=== PATIENT | female | born 1955 | race African-American/Black ===

== ENCOUNTER 2017-12-21 12:24 | Inpatient (IN) | payer OTHER ==
[~2017-12-21] VITALS: Ht 162.6 cm; Wt 84.5 kg
[~2017-12-21 12:24] MED LIST: ASPIR-LOW81 MG PO; BACTRIM,SEPT1 TABLET PO; BYDUREON P2 MG/0.65 SC; BYETTA10 MCG/0.0 SC; CALCIUM 500 MG1 EACH PO; CALCIUM 600 +1 EAC1 PO; CELEXA40 MG PO; COUMADIN1 MG PO; COUMADIN5 MG PO; COUMADIN6 MG PO; DILAUDID2 MG PO; DIOVAN HCT 31 TABLE1 PO; DOXYCYCLINE HY100 M3 PO; FA-80.8 MG PO; FLEXERIL10 MG PO; FLONASE16 G1 BOTH NARES; GINKGO BILOBA120 MG PO; HUMALOG MI100 UNIT/1 SC; K-DUR20 MEQ PO; LOPRESSOR50 MG PO; LOVENOX80 MG/0.8 SC; MORPHINE SULFA100 M3 PO; NON-ASPIRIN PA500 MG PO; ONE DAILY FOR1 EAC1 PO; PAZEO2.5 ML BOTH EYES; PREVACID30 MG PO; RANITIDINE HCL150 M1 PO; RANITIDINE HCL150 MG PO; TORSEMIDE20 MG PO; ZOFRAN4 MG PO; [UNRECOGNIZED DRUG - REMARK]
[2017-12-21 13:15] LABS: HEMATOCRIT 46.1 % (36.0-46.0); MCH 33.5 PG (29.0-34.0); MCHC 34.7 G/DL (30.0-36.0); MCV 96.6 FL (83-99); PLATELET COUNT 199 K/uL (156-360); RBC DIS.WIDTH-CV 12.9 % (11.8-14.6); RBC DIS.WIDTH-SD 46.2 % (39-53); RED BLOOD COUNT 4.77 M/uL (3.80-5.20); WHITE BLOOD COUNT 10.5 K/uL (4.1-10.2)
[2017-12-21 13:31] LABS: CHLORIDE 103 mEq/L (99-109); POTASSIUM 3.9 mEq/L (3.7-5.4); SODIUM 140 mEq/L (136-147)
[2017-12-21 13:37] LABS: CREATININE 1.6 mg/dL (0.6-1.3); GFR ESTIMATE (CALCULATED) 42 mL/min/; UREA NITROGEN (BUN) 24 mg/dL (9-23)
[2017-12-21 13:47] LABS: GLUCOSE 494 mg/dL (70-99)
[2017-12-21 14:54] LABS: APPEARANCE CLOUDY ((CLEAR)); BILIRUBIN NEGATIVE; BLOOD LARGE; COLOR YELLOW ((YELLOW)); GLUCOSE (STRIP) >=500; KETONES 5; LEUKOCYTES NEGATIVE; NITRITE NEGATIVE; PROTEIN (STRIP) 30; UROBILINOGEN 0.2 MG/DL (0.2-1.0)
[2017-12-21 14:55] LABS: TROP-I INTERPRETATION POSITIVE
[2017-12-21 14:56] LABS: TROPONIN-I 0.73 ng/mL (0.0-0.30)
[2017-12-21 15:15] LABS: BACTERIA 4+ /HPF; EPITHELIAL CELLS NONE SEEN /HPF; MUCUS NONE SEEN /LPF; RED BLOOD CELLS 40-50 /HPF (0-5); UCUL ADDED? YES; WHITE BLOOD CELLS 0-5 /HPF (0-5)
[2017-12-21] MEDS ORDERED: DEMADEX20 MG PO (17:01)
[2017-12-21] MEDS ORDERED: ARICEPT10 MG PO (17:01)
[2017-12-21] MEDS ORDERED: K-DUR20 MEQ PO (17:01)
[2017-12-21] MEDS ORDERED: HUMALOG MI100 UNIT/5 SC (17:01)
[2017-12-21] MEDS ORDERED: LOPRESSOR50 MG PO (17:01)
[2017-12-21] MEDS ORDERED: BACLOFEN20 MG PO (17:01)
[2017-12-21] MEDS ORDERED: LIPITOR40 MG PO (17:01)
[2017-12-21] MEDS ORDERED: MAGNESIUM400 M1 PO (17:01)
[2017-12-21] MEDS ORDERED: FOLIC ACID0.4 MG PO (17:01)
[2017-12-21] MEDS ORDERED: AMITRIPTYLINE H25 MG PO (17:01)
[2017-12-21] MEDS ORDERED: LANSOPRAZOLE30 MG PO (17:01)
[2017-12-21] MEDS ORDERED: CALCIUM 500 +1 EAC2 PO (17:01)
[2017-12-21] MEDS ORDERED: TOPAMAX100 MG PO (17:01)
[2017-12-21] MEDS ORDERED: MORPHINE SULFAT30 M2 PO (17:01)
[2017-12-21] MEDS ORDERED: DIOVAN320 MG PO (17:01)
[2017-12-21] MEDS ORDERED: BYDUREON P2 MG/0.65 SC (17:01)
[2017-12-21] MEDS ORDERED: HUMALOG100 UNIT/2 SC (17:04)
[2017-12-21] MEDS ORDERED: FLONASE16 G1 BOTH NARES (17:04)
[2017-12-21] MEDS ORDERED: NAMENDA5 MG PO (17:04)
[2017-12-21] MEDS ORDERED: VOLTAREN 1% GE100 GM TP (17:05)
[2017-12-21] MEDS ORDERED: TRESIBA FL100 UNIT/1 SC (17:06)
[2017-12-21 17:58] LABS: INTER. NORMALIZED RATIO 1.1
[2017-12-21 18:00] LABS: PTT 29.1 SEC (25-37)
[2017-12-21 18:21] VITALS: BP 161/14
[2017-12-21 19:08] LABS: TROP-I INTERPRETATION POSITIVE; TROPONIN-I 0.95 ng/mL (0.0-0.30)
[2017-12-21 19:18] VITALS: BP 136/78
[2017-12-21 19:21] LABS: THYROTROPIN (TSH) 0.3 MIU/L (0.4-5.5)
[2017-12-22] VITALS (7 sets, daily range): BP systolic 133–192; BP diastolic 69–103
[2017-12-22 02:42] LABS: HEMATOCRIT 41.8 % (36.0-46.0); HEMOGLOBIN 14.2 G/DL (11.9-15.5); MCH 33.4 PG (29.0-34.0); MCV 98.4 FL (83-99); PLATELET COUNT 177 K/uL (156-360); RBC DIS.WIDTH-CV 13.3 % (11.8-14.6); RBC DIS.WIDTH-SD 47.5 % (39-53); RED BLOOD COUNT 4.25 M/uL (3.80-5.20); WHITE BLOOD COUNT 8.9 K/uL (4.1-10.2)
[2017-12-22 02:58] LABS: CHLORIDE 108 mEq/L (99-109); POTASSIUM 3.6 mEq/L (3.7-5.4); SODIUM 141 mEq/L (136-147)
[2017-12-22 02:59] LABS: GLUCOSE 248 mg/dL (70-99)
[2017-12-22 03:03] LABS: GFR ESTIMATE (CALCULATED) > 59 mL/min/
[2017-12-22 03:04] LABS: UREA NITROGEN (BUN) 21 mg/dL (9-23)
[2017-12-22 03:05] LABS: TROP-I INTERPRETATION INDETERMINATE; TROPONIN-I 0.59 ng/mL (0.0-0.30)
[2017-12-22 10:44] LABS: HEMOGLOBIN A1c (GLYCOHEMOGLOB) 10.4 % (Below 5.7)
[2017-12-23] VITALS (7 sets, daily range): BP systolic 142–192; BP diastolic 76–87
[2017-12-23 06:19] LABS: BASOPHIL (%) 0.3 % (0-1); EOSINOPHIL (%) 1.2 % (0-5); EOSINOPHIL COUNT 0.1 K/uL (0-0.3); HEMOGLOBIN 12.6 G/DL (11.9-15.5); IMMATURE GRANULOCYTE (%) 1.2 % (0.0-0.7); LYMPHOCYTE (%) 24.9 % (15-42); LYMPHOCYTE COUNT 1.7 K/uL (1.0-2.8); MCH 32.7 PG (29.0-34.0); MCHC 32.3 G/DL (30.0-36.0); MCV 101.3 FL (83-99); MONOCYTE (%) 8.5 % (3-12); MONOCYTE COUNT 0.6 K/uL (0-0.8); NEUTROPHIL (%) 63.9 % (45-76); NEUTROPHIL COUNT 4.3 K/uL (1.8-6.4); PLATELET COUNT 140 K/uL (156-360); RBC DIS.WIDTH-CV 13.3 % (11.8-14.6); RBC DIS.WIDTH-SD 50.4 % (39-53); RED BLOOD COUNT 3.85 M/uL (3.80-5.20); WHITE BLOOD COUNT 6.7 K/uL (4.1-10.2)
[2017-12-23 06:48] LABS: PTT 77.7 SEC (25-37)
[2017-12-23 07:01] LABS: ALBUMIN 2.7 G/DL (3.2-4.8); ALKALINE PHOSPHATASE 78 IU/L (3-129); ALT (GPT) 15 IU/L (3-49); AST (GOT) 12 IU/L (2-34); CHLORIDE 105 MEQ/L (99-109); CREATININE 1.1 MG/DL (0.6-1.3); GFR ESTIMATE (CALCULATED) > 59 mL/min/; GLUCOSE 347 mg/dL (70-99); POTASSIUM 3.7 MEQ/L (3.7-5.4); SODIUM 142 MEQ/L (136-147); TOTAL BILIRUBIN 0.4 MG/DL (0.0-1.0); TOTAL PROTEIN 4.8 G/DL (6.4-8.3); UREA NITROGEN (BUN) 19 mg/dL (9-23)
[2017-12-24] VITALS (8 sets, daily range): BP systolic 136–160; BP diastolic 70–88
[2017-12-24 06:05] LABS: APPEARANCE CLEAR ((CLEAR)); BILIRUBIN NEGATIVE; BLOOD MODERATE; COLOR STRAW ((YELLOW)); GLUCOSE (STRIP) >=500; KETONES NEGATIVE; LEUKOCYTES TRACE; NITRITE NEGATIVE; PROTEIN (STRIP) NEGATIVE; UROBILINOGEN 0.2 MG/DL (0.2-1.0)
[2017-12-24 06:18] LABS: BASOPHIL (%) 0.6 % (0-1); BASOPHIL COUNT 0.1 K/uL (0-0.1); EOSINOPHIL (%) 1.4 % (0-5); EOSINOPHIL COUNT 0.1 K/uL (0-0.3); HEMATOCRIT 41.4 % (36.0-46.0); HEMOGLOBIN 13.7 G/DL (11.9-15.5); IMMATURE GRANULOCYTE (%) 1.9 % (0.0-0.7); LYMPHOCYTE (%) 25.6 % (15-42); MCH 32.9 PG (29.0-34.0); MCHC 33.1 G/DL (30.0-36.0); MCV 99.3 FL (83-99); MONOCYTE (%) 7.9 % (3-12); MONOCYTE COUNT 0.6 K/uL (0-0.8); NEUTROPHIL (%) 62.6 % (45-76); NEUTROPHIL COUNT 4.8 K/uL (1.8-6.4); NRBC (%) 0.3 /100 WBC (0-0); PLATELET COUNT 164 K/uL (156-360); RBC DIS.WIDTH-CV 13.2 % (11.8-14.6); RBC DIS.WIDTH-SD 47.8 % (39-53); RED BLOOD COUNT 4.17 M/uL (3.80-5.20); WHITE BLOOD COUNT 7.7 K/uL (4.1-10.2)
[2017-12-24 06:38] LABS: BACTERIA RARE /HPF; EPITHELIAL CELLS RARE /HPF; MUCUS 1+ /LPF; RED BLOOD CELLS 0-5 /HPF (0-5); UCUL ADDED? YES
[2017-12-24 06:55] LABS: ALBUMIN 2.9 G/DL (3.2-4.8); ALKALINE PHOSPHATASE 86 IU/L (3-129); ALT (GPT) 16 IU/L (3-49); AST (GOT) 15 IU/L (2-34); CHLORIDE 109 MEQ/L (99-109); CREATININE 0.8 MG/DL (0.6-1.3); GFR ESTIMATE (CALCULATED) > 59 mL/min/; GLUCOSE 199 mg/dL (70-99); POTASSIUM 3.9 MEQ/L (3.7-5.4); SODIUM 144 MEQ/L (136-147); TOTAL PROTEIN 4.9 G/DL (6.4-8.3); UREA NITROGEN (BUN) 19 mg/dL (9-23)
[2017-12-24 07:00] LABS: TOTAL BILIRUBIN 0.5 MG/DL (0.0-1.0)
[2017-12-25 03:49] VITALS: BP 170/80
[2017-12-25 07:30] VITALS: BP 160/110
[2017-12-25 11:00] VITALS: BP 170/110
[2017-12-25 17:44] VITALS: BP 189/90
[2017-12-25 18:00] VITALS: BP 189/84
[2017-12-25 20:00] VITALS: BP 168/84
[2017-12-26] VITALS (9 sets, daily range): BP systolic 123–180; BP diastolic 74–94
[2017-12-26 06:31] LABS: HEMATOCRIT 43.9 % (36.0-46.0); MCH 33.9 PG (29.0-34.0); MCHC 34.2 G/DL (30.0-36.0); MCV 99.1 FL (83-99); NRBC (%) 0.4 /100 WBC (0-0); PLATELET COUNT 159 K/uL (156-360); RBC DIS.WIDTH-CV 13.3 % (11.8-14.6); RBC DIS.WIDTH-SD 48.1 % (39-53); RED BLOOD COUNT 4.43 M/uL (3.80-5.20); WHITE BLOOD COUNT 7.4 K/uL (4.1-10.2)
[2017-12-27 00:15] VITALS: BP 139/80
[2017-12-27 05:04] VITALS: BP 147/81
[2017-12-27 07:46] VITALS: BP 142/96
[2017-12-27 11:00] VITALS: BP 132/75
[2017-12-27] MEDS ORDERED: CLONIDINE HCL0.1 MG PO (12:48)
[2017-12-27] MEDS ORDERED: ASPIR-LOW81 MG PO (12:48)
[2017-12-27] MEDS ORDERED: AMLODIPINE BESY10 MG PO (12:48)
[2017-12-27] MEDS ORDERED: HYDROCHLOROTHIA25 MG PO (12:49)
[2017-12-27] MEDS ORDERED: MIRTAZAPINE15 MG PO (12:49)
[2017-12-27] MEDS ORDERED: LEVEMIR100 UNIT/2 SC (12:50)
[2017-12-27] MEDS ORDERED: POLYETHYLENE GL17 GM PO (12:50)
[2017-12-27] MEDS ORDERED: MORPHINE SULFAT30 M2 PO (12:50)
[2017-12-27 16:34] VITALS: BP 128/73
== END 2017-12-27 16:51 | DRG 281 ==
LOC: EME 12:24 → 4EAST 16:24 → ENRESERV 16:24 → EDOF 16:24 → ENRESERV 17:03 → 4EAST 18:06 → ENRESERV 12-24 16:44 → 5EAST 12-24 19:54
PROVIDERS: Emergency Medicine; Hospitalist; Internal Medicine
DX: I21.4 Non-ST elevation (NSTEMI) myocardial infarction (principal); N17.9 Acute kidney failure, unspecified; E11.65 Type 2 diabetes mellitus with hyperglycemia; F32.0 Major depressive disorder, single episode, mild; I16.0 Hypertensive urgency; I10 Essential (primary) hypertension; R33.9 Retention of urine, unspecified; R32 Unspecified urinary incontinence; K52.9 Noninfective gastroenteritis and colitis, unspecified; G43.909 Migraine, unspecified, not intractable, without status migrainosus; K59.00 Constipation, unspecified; G35 Multiple sclerosis; F03.90 Unspecified dementia, unspecified severity, without behavioral disturbance, psychotic disturbance, mood disturbance, and anxiety; J45.909 Unspecified asthma, uncomplicated; K21.9 Gastro-esophageal reflux disease without esophagitis; E78.5 Hyperlipidemia, unspecified; M79.7 Fibromyalgia; E04.1 Nontoxic single thyroid nodule; G89.29 Other chronic pain; E66.9 Obesity, unspecified; Z68.31 Body mass index [BMI] 31.0-31.9, adult; G47.00 Insomnia, unspecified; M81.0 Age-related osteoporosis without current pathological fracture; F17.210 Nicotine dependence, cigarettes, uncomplicated; Z79.4 Long term (current) use of insulin; Z90.710 Acquired absence of both cervix and uterus; Z83.3 Family history of diabetes mellitus; Z82.49 Family history of ischemic heart disease and other diseases of the circulatory system
CPT/HCPCS: 70450; 71045; 71275; 80048; 80053; 81003; 82948; 83036; 83605; 84439; 84443; 84481; 84484; 85025; 85027; 85610; 85730; 87040; 87086; 87502; 93005; 99281; 99284; J1815; J2405; J7030; J7040